=== PATIENT | male | born 1945 | race Caucasian/White ===

== ENCOUNTER 2021-01-11 11:00 | Outpatient (RCR) | payer MEDICARE, OTHER, SELFPAY ==
--- NOTE | 2020-12-13 11:24 | OTOPEVAL ---
OCCUPATIONAL THERAPY EVALUATION REPORT 12/13/20 Thank you for referring Kendall Orantes to [facility] The patient is scheduled to be seen for therapy? 1x/week for 4 weeks. Please review, sign, date and return this plan of care FELISA. I agree with and certify that the following plan of care is medically necessary. Referring Physician Date Referring Provider: Andrzej Prince MD *OT Outpatient Evaluation Outpatient Past Medical History Past Medical History Source of Past Medical History Patient Neurological History Hx Transient Ischemic Attacks (TIA) Yes: 2004 Cardiovascular History Hx Pacemaker Yes: March 2020 Hx Other Cardiac Disorders Yes: Aortic valve replacement Respiratory History Hx Chronic Obstructive Pulmonary Disease Yes (COPD) Hx Emphysema Yes Musculoskeletal History Hx Fractures Yes: Right elbow, right fingers HEENT History Hx Cataracts Yes: s/p surgery Hx Glaucoma Yes Evaluation Information Problem Diagnosis Bilateral hand pain Subjective Information Patient reports bilateral hand Query Text:As Reported By Patient/ pain that has been getting Family worse for about a year. Initially his pain was in the base of the thumb which he received a cortisone injection for and this helped his pain significantly. 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 He reports a decline in his ability to use his hands to turn on/off lamps, writing, typing, buttoning, etc. He states he is unable to take NSAID/anti-inflammatory for pain due to being on a blood thinner. Diagnostic Tests Other Tests For This Problem Yes: nerve condution study was negative Prior Level of Function Activity Level (Last 3 Months) Hand Dominance Left Comments Additional Prior Level of Function Patient is left-hand dominant, Comments but does use his right hand for a lot of ADL tasks. He states his is recovering from a broken ankle right now so he has been doing all of the cooking, cleaning, and laundry. Pain Assessment Timing of Pain Assessment Timing of Pain Assessment Assessment Pain Scal
--- NOTE | 2021-01-11 12:00 | OTOPEVAL ---
OCCUPATIONAL THERAPY RE-EVALUATION REPORT AND D/C SUMMARY Kendall has progressed well with therapy. He has improved functional use of his hands and notes less pain with use and at rest. He is currently independent with ROM, strengthening, and joint protection techniques. No further skilled OT is indicated at this time. Thank you for referring Kendall Orantes to [facility]Please review, sign, date and return this D/C Note FELISA. I agree with and certify that the following plan of care is medically necessary. Referring Physician Date Referring Provider: Dr. Andrzej Prince *OT Outpatient Re-Evaluation Evaluation Information Problem Diagnosis Bilateral hand pain Additional Evaluation Detail Kendall has participated in outpatient OT 1x/week for 4 weeks. OT has been focusing on use of paraffin, active ROM, vibration, and light resistive regional maintenance manager strengthening in conjunction with education on joint protection techniques and adaptive ADL equipment. He is currently independent with all materials. Subjective Information Today he presents for his re- Query Text:As Reported By Patient/ evaluation stating that his Family active ROM has improved and his pain has reduced. He states he hasn't had any sudden, shooting pains like he was having multiple times a day. He reports improved ability to write and turn on lamps as well as using adaptive equipment to open jars/containers with no pain. Pain Assessment Timing of Pain Assessment Timing of Pain Assessment Re-assessment Pain Scale Pain Scale Used Numeric (1 - 10) Self Report Pain Assessment Bilateral Hand(s) Reported Pain Level 1 Other Pain Description Stiff and achey Lowest Pain Intensity 0 Greatest Pain Intensity 5 Pain Score Pain Score 1: Self Report Interventions Used Interventions Used By Clinicians Paraffin Upper Extremity Range of Motion Finger Range of Motion Left Finger Range of Motion Comments -(L) hand full fist returned to normal limits -(L) hook fist continues to have 1.0 gap between finger tips and distal palmar crease, but is functional -Arthritic changes noted in IPs
== END 2021-01-12 07:34 | disposition home or self-care (01) ==
LOC: ANHOT 11:00
PROVIDERS: PCP Internal Medicine Endocrinology, Diabetes & Metabolism
DX: R20.0 Anesthesia of skin (principal); R20.2 Paresthesia of skin
CPT/HCPCS: 97018; 97110; 97140; 97165

== ENCOUNTER 2024-03-06 09:51 | Emergency (ER) | payer MEDICARE, OTHER, SELFPAY ==
[2024-03-06 10:05] VITALS: BP 131/63; PULSE 69; RESP 16; TEMP 37.2; O2SAT 99
--- NOTE | 2024-03-06 10:20 | ED.URI ---
HPI - URI/Sore Throat General Chief Complaint: Upper Respiratory Infection Stated Complaint: chills,sore throat,fatigue Time Seen by Provider: 03/06/24 10:20 Source: patient Mode of arrival: ambulatory Limitations: no limitations History of Present Illness HPI Narrative: 78-year-old male presents with complaint of sore throat for 5 days. He reports nasal congestion, mild headache, postnasal drainage for 3 days. Reports fatigue. No chest pain or shortness of breath. Reports mild dry cough. Afebrile. Denies nausea vomiting diarrhea. Not taking any xtvz-awr-wibqpmi medications to treat his symptoms. All systems reviewed and negative except as noted above. Related Data Home Medications Medication Instructions Recorded Confirmed enoxaparin 80 mg/0.8 mL 80 mg subcut 03/06/24 subcutaneous syringe evolocumab 140 mg/mL subcutaneous 140 mg subcut [id number] 03/06/24 03/06/24 pen injector (Areli Forbes) gabapentin 600 mg tablet 600 mg PO BID 03/06/24 03/06/24 ivermectin 1 % topical cream 1 applic topical HS 03/06/24 03/06/24 lisinopril 20 1 tablet PO DAILY 03/06/24 03/06/24 mg-hydrochlorothiazide 12.5 mg tablet metoprolol succinate 25 mg 25 mg PO DAILY 03/06/24 03/06/24 tablet,extended release 24 hr pantoprazole 40 mg tablet,delayed 40 mg PO DAILY 03/06/24 03/06/24 release rosuvastatin 10 mg tablet 10 mg PO HS 03/06/24 03/06/24 spironolactone 25 mg tablet 12.5 mg PO DAILY 03/06/24 03/06/24 tamsulosin 0.4 mg capsule 0.4 mg PO DAILY 03/06/24 03/06/24 timolol maleate (PF) 0.5 % eye 1 drp RIGHT EYE DAILY 03/06/24 03/06/24 drops in a dropperette warfarin 5 mg tablet 7.5 mg PO HS 03/06/24 03/06/24 Allergies Allergy/AdvReac Type Severity Reaction Status Date / Time Penicillins Allergy Unknown Unknown Verified 03/06/24 10:20 NKFA Allergy Unknown Unknown Uncoded 03/06/24 10:20 Review of Systems Review of Systems: CONSTITUTIONAL: Denies fever, chills, or sweats. reports fatigue. EYES: Denies visual changes, redness, or discharge. ENT: Reports rhinorrhea, congestion, sore throat. Denies otalgia. CARDIOVASCULAR: Denies chest pain, palpitations, or edema. RESPIRATORY: Reports cough. Denies dyspnea. GASTROINTESTINAL: Denies abdominal pain, nausea, vomiting, or diarrhea. GENITOURINARY: Denies dysuria or hematuria. SKIN: Denies rash or itching. MUSCULOSKELETAL: Denies back pain, joint pain, or myalgia. NEUROLOGIC: Denies headache, numbness, or weakness. PSYCHIATRIC: Denies anxiety or depression. All other systems reviewed are negative, except as documented in HPI. PMFSH Comments At time of signature, agree with nursing past medical, surgical, social and family history. There is no relevant family history pertinent to the presenting complaint. Exam Narrative: GENERAL: This is a well-nourished, well-developed patient, in no apparent distress. HEAD: normocephalic, atraumatic. EYES: PERRL. Sclera clear/white. Vision is grossly intact. EARS: External ears normal, auditory canals clear and without drainage, TMs normal without perforation. Hearing grossly intact. NOSE: External nose normal with mild congestion, erythema to bilateral nares with mild swelling. THROAT: Mucous membranes moist, Mild erythema with postnasal drainage. NECK: Neck supple, non-tender without lymphadenopathy, masses or thyromegaly. CARDIOVASCULAR: Regular rate and rhythm without murmurs, gallops, or rubs. RESPIRATORY: Clear to auscultation. Breath sounds equal bilaterally. No wheezes, rales, or rhonchi. SKIN: warm, Dry, intact with no suspicious lesions or rash, good texture and turgor. NEURO: awake, alert, and oriented to person, place and time. There were no obvious focal neurologic abnormalities. EXTREMITIES: No joint tenderness, effusion, or edema noted. Course Course Level of Care: Express Care Visit Vital Signs Vital signs: Vital Signs Temperature 37.2 C 03/06/24 10:05 Pulse Rate 69 03/06/24 10:0
== END 2024-03-06 10:38 | disposition home or self-care (01) ==
PROVIDERS: Emergency Provider Nurse Practitioner Family
DX: J06.9 Acute upper respiratory infection, unspecified (principal); Z20.822 Contact with and (suspected) exposure to COVID-19; E78.00 Pure hypercholesterolemia, unspecified; I10 Essential (primary) hypertension; Z95.0 Presence of cardiac pacemaker; Z95.2 Presence of prosthetic heart valve; J44.9 Chronic obstructive pulmonary disease, unspecified; K21.9 Gastro-esophageal reflux disease without esophagitis; H40.9 Unspecified glaucoma; Z86.73 Personal history of transient ischemic attack (TIA), and cerebral infarction without residual deficits
CPT/HCPCS: 87081; 87426; 87804; 87880; 99213; G0463

== ENCOUNTER 2024-12-11 16:24 | Emergency (ER) | payer MEDICARE, OTHER, SELFPAY ==
[2024-12-11 16:34] VITALS: BP 146/72; PULSE 77; RESP 16; TEMP 36.6; O2SAT 98
--- NOTE | 2024-12-11 16:48 | ED_ITS ---
HPI - Skin/Abscess/Foreign Bdy General Chief complaint: Skin/Abscess/Foreign Body Stated complaint: left leg wound Time Seen by Provider: 12/11/24 16:48 Source: patient, RN notes reviewed and old records reviewed Mode of arrival: ambulatory Limitations: no limitations History of Present Illness HPI narrative: Patient presents with complaint of wound to the left leg. He reports that he noticed the wound late last week, states that he has been applying Neosporin and Band-Aid daily. Has had some drainage from site. He now reports increasing tenderness and redness surrounding the area. He denies any fever, chills, sweats. He voices no other concerns or complaints at this time. He is unsure how he sustained the wound, he does report that it is where a pair of boots that he owns rubs him Related Data Home Medications ?Medication ?Instructions ?Recorded ?Confirmed ?Last Taken ?Type enoxaparin 80 mg/0.8 mL 80 mg subcut Q24H 03/06/24 12/11/24 Unknown History subcutaneous syringe evolocumab 140 mg/mL subcutaneous 140 mg subcut [id number] 03/06/24 12/11/24 Unknown History pen injector (Areli Forbes) gabapentin 600 mg tablet 600 mg PO BID 03/06/24 12/11/24 Unknown History ivermectin 1 % topical cream 1 applic topical HS 03/06/24 12/11/24 Unknown History lisinopril 20 1 tablet PO DAILY 03/06/24 12/11/24 Unknown History mg-hydrochlorothiazide 12.5 mg tablet metoprolol succinate 25 mg 25 mg PO DAILY 03/06/24 12/11/24 Unknown History tablet,extended release 24 hr pantoprazole 40 mg tablet,delayed 40 mg PO DAILY 03/06/24 12/11/24 Unknown History release rosuvastatin 10 mg tablet 10 mg PO HS 03/06/24 12/11/24 Unknown History spironolactone 25 mg tablet 12.5 mg PO DAILY 03/06/24 12/11/24 Unknown History tamsulosin 0.4 mg capsule 0.4 mg PO DAILY 03/06/24 12/11/24 Unknown History timolol maleate (PF) 0.5 % eye 1 drp RIGHT EYE DAILY 03/06/24 03/06/24 Unknown History drops in a dropperette warfarin 5 mg tablet 7.5 mg PO HS 03/06/24 12/11/24 Unknown History Allergies Allergy/AdvReac Type Severity Reaction Status Date / Time Penicillins Allergy Unknown Unknown Verified 12/11/24 16:41 Review of Systems 2 Review of Systems: All systems reviewed & are unremarkable except as noted in HPI and below Constitutional: Constitutional: Reports no additional constitutional complaints ENT: Reports system reviewed and no additional complaints, except as documented Cardiovascular: Cardiovascular: Reports no additional cardiovascular complaints Respiratory: Respiratory: Reports no additional respiratory complaints Gastrointestinal: Gastrointestinal: Reports no additional gastrointestinal complaints Integumentary/Breasts: Skin/Breast: Reports system reviewed and no additional complaints, except as docu and Reports as per HPI [facility] Comments At the time of my signature, I reviewed and agree with the nursing past medical, surgical, social, and family history. There is no relevant family history pertinent to the patient complaint. Exam 2 Const: General: cooperative, no acute distress, alert and awake O rientation/consciousness: oriented to person, oriented to place and oriented to time HENMT: Head: normal to inspection Resp: Effort & Inspection: normal respiratory effort and able to speak in complete sentences Auscultation: clear to auscultation bilaterally, no crackles, no rales, no rhonchi and no wheezes Cardio: Palpation: normal PMI Rate: regular rate Rhythm: regular rhythm Heart sounds: S1 normal heart sound present and S2 normal heart sound present Skin: Full body images: 1. 1.5 cm shallow wound, oval-shaped, surrounding erythema and warmth. No induration. No active dry Neuro: General: oriented to person, oriented to place and oriented to time Cranial nerves: Yes CN's II-XII intact bilaterally Psych: Appearance: grossly normal Thought process: Normal thought process present Insight: Good insight present (Psych) Judgement: Good judgement present (Psych) Course Course Level of Care: Express Care Visit Vital Signs Vital signs: Vital Signs Temperature 97.9 F 12/11/24 16:34 Pulse Rate 77 12/11/24 16:34 Respiratory Rate 16 12/11/24 16:34 Blood Pressure 146/72 H 12/11/24 16:34 Pulse Oximetry 98 12/11/24 16:34 Oxygen Delivery Room Air 12/11/24 16:34 Temperature 97.9 F 12/11/24 16:34 Pulse Rate 77 12/11/24 16:34 Respiratory Rate 16 12/11/24 16:34 Blood Pressure 146/72 H 12/11/24 16:34 Pulse Oximetry 98 12/11/24 16:34 Oxygen Delivery Room Air 12/11/24 16:34 Reviewed MDM - Skin/Abscess/Foreign Bdy MDM Narrative Medical decision making narrative: History and exam consistent with cellulitis. Patient nontoxic appearing, stable for discharge home with p.o. antibiotic therapy. Discharge instructions reviewed with patient, as well as provided in writing per nursing staff. The instructions also include specific and strict return/GO TO THE ER as well as f/u information. All questions have been answered, and the patient deny any further questions with discharge and discharge plan. Some parts of this dictation were generated by voice recognition software and may contain typographical and/or grammatical inaccuracies. Differential Diagnosis Differential diagnosis: Likely abscess of skin or subcutaneous tissue, cellulitis and contact dermatitis Medical Records Attestation: I reviewed the patient's medical records. Discharge Plan Discharge Clinical Impression: Cellulitis Qualifiers: Site of cellulitis: extremity Site of cellulitis of extremity: lower extremity Laterality: left Qualified Code(s): L03.116 - Cellulitis of left lower limb Patient Disposition: Home, Self-Care Condition: Stable Instructions: Antibiotic Form, Cellulitis (ED) Additional Instructions: Take medications as prescribed. Follow-up with primary care provider. Emergency department for new or worse symptoms Patient Language: Dominican Prescriptions: New doxycycline hyclate 100 mg tablet 100 mg PO BID Qty: 14 0RF No Action gabapentin 600 mg tablet 600 mg PO BID lisinopril-hydrochlorothiazide 20-12.5 mg tablet 1 tablet PO DAILY spironolactone 25 mg tablet 12.5 mg PO DAILY tamsulosin 0.4 mg capsule 0.4 mg PO DAILY pantoprazole 40 mg tablet,delayed release (DR/EC) 40 mg PO DAILY warfarin 5 mg tablet 7.5 mg PO HS metoprolol succinate 25 mg tablet extended release 24 hr 25 mg PO DAILY enoxaparin 80 mg/0.8 mL syringe 80 mg subcut Q24H timolol maleate (PF) 0.5 % dropperette 1 drp RIGHT EYE DAILY rosuvastatin 10 mg tablet 10 mg PO HS ivermectin 1 % cream 1 applic TOPICAL HS Repatha SureClick 140 mg/mL pen injector 140 mg SUBCUT [id number] Follow-up/Referrals: German,Marlo Ledezma MD [Primary Care Provider] - Time of Disposition: 16:56
== END 2024-12-11 17:00 | disposition home or self-care (01) ==
PROVIDERS: Emergency Provider Nurse Practitioner Family; PCP Internal Medicine Endocrinology, Diabetes & Metabolism
DX: L03.116 Cellulitis of left lower limb (principal); Z79.899 Other long term (current) drug therapy; Z79.01 Long term (current) use of anticoagulants
CPT/HCPCS: 99213; G0463

== ENCOUNTER 2025-02-13 19:11 | Emergency (ER) | payer MEDICARE, OTHER, SELFPAY ==
--- NOTE | ~2025-02-13 | XR_ITS ---
EXAMINATION: XR chest 2V Exam Date/Time: 02/13/2025 19:35 CDT HISTORY: cough and SOB Comparison: 07/17/2006; CT abdomen pelvis 10/30/2018. RESULT: Lines, tubes, and devices: Left chest pacer with intact leads. Cardiac valve replacement. Intact maria a rnotomy wires. Lungs and pleura: Clear. Cardiomediastinal silhouette: Normal heart size. Mild arch calcification. Calcified pericardial node . Other: No acute osseous or upper abdominal finding. Multilevel mild anterior wedge deformities in th e upper thoracic spine. IMPRESSION: No acute cardiopulmonary process. 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 Reviewed, dictated and finalized at location K. IMPRESSION: No acute cardiopulmonary process. Exaggerated thoracic kyphosis, with presumed chronic multilevel mild wedge comp ression deformities in the upper thoracic spine.
[2025-02-13 19:21] VITALS: BP 143/63; PULSE 81; RESP 19; TEMP 37; O2SAT 97
--- NOTE | 2025-02-13 19:32 | ED_ITS ---
HPI - URI/Sore Throat General Chief Complaint: Upper Respiratory Infection Stated Complaint: Cough/Congestion Time Seen by Provider: 02/13/25 19:32 Source: patient Mode of arrival: ambulatory Limitations: no limitations History of Present Illness HPI Narrative: 79 yo M presents with c/o low grade fever, cough, nasal congestion, fatigue, bodyaches for 1 days. Reports SOB with exertion when up and about. No SOB at rest. Difficulty sleeping last night due to cough. Took delsym with little relief. Pt alert and oriented. all systems reviewed and negative except as noted above. Related Data Home Medications ?Medication ?Instructions ?Recorded ?Confirmed ?Last Taken ?Type evolocumab 140 mg/mL subcutaneous 140 mg subcut [id number] 03/06/24 12/11/24 Unknown History pen injector (Areli Forbes) gabapentin 600 mg tablet 600 mg PO BID 03/06/24 12/11/24 Unknown History ivermectin 1 % topical cream 1 applic topical HS 03/06/24 12/11/24 Unknown History lisinopril 20 1 tablet PO DAILY 03/06/24 12/11/24 Unknown History mg-hydrochlorothiazide 12.5 mg tablet metoprolol succinate 25 mg 25 mg PO DAILY 03/06/24 12/11/24 Unknown History tablet,extended release 24 hr pantoprazole 40 mg tablet,delayed 40 mg PO DAILY 03/06/24 12/11/24 Unknown History release rosuvastatin 10 mg tablet 10 mg PO HS 03/06/24 12/11/24 Unknown History spironolactone 25 mg tablet 12.5 mg PO DAILY 03/06/24 12/11/24 Unknown History tamsulosin 0.4 mg capsule 0.4 mg PO DAILY 03/06/24 12/11/24 Unknown History timolol maleate (PF) 0.5 % eye 1 drp RIGHT EYE DAILY 03/06/24 03/06/24 Unknown History drops in a dropperette warfarin 5 mg tablet 7.5 mg PO HS 03/06/24 12/11/24 Unknown History Bifidobacterium longum 10 million cell PO 02/13/25 Unknown History cell capsule (Align (B.longum)) coenzyme [id number] E 100 mg-100 cap PO 02/13/25 Unknown History unit capsule glucosamine [id number] 1 tablet PO DAILY 02/13/25 Unknown History tiffanie 1,500 mg-400 unit-100 mg tablet (Osteo Bi-Flex (5-Loxin)) hydrocortisone 1 % topical cream 1 applic topical DAILY 02/13/25 02/13/25 Hist ory (Cortisone (hydrocortisone)) gfrlzxxlvqrx-dohhcvh-qkevm acid 1 tablet PO DAILY 02/13/25 Unknown History 400 mcg-lutein 250 mcg chewable tablet (Centrum Silver) testosterone 02/13/25 Unknown History triamcinolone acetonide 0.1 % applic topical 02/13/25 Unknown History topical cream Allergies Allergy/AdvReac Type Severity Reaction Status Date / Time bacitracin Allergy Mild Unknown Verified 02/13/25 19:39 Penicillins Allergy Unknown Unknown Verified 02/13/25 19:39 Review of Systems 2 Review of Systems: CONSTITUTIONAL: reports fatigue, fever, EYES: Denies visual changes, redness, or discharge. ENT: Reports rhinorrhea, congestion. Denies sore throat, or otalgia. CARDIOVASCULAR: Denies chest pain, palpitations, or edema. RESPIRATORY: reports cough and dyspnea with exertion. GASTROINTESTINAL: Denies abdominal pain, nausea, vomiting, or diarrhea. GENITOURINARY: Denies dysuria or hematuria. SKIN: Denies rash or itching. MUSCULOSKELETAL: Denies back pain, joint pain, or myalgia. NEUROLOGIC: Denies headache, numbness, or weakness. PSYCHIATRIC: Denies anxiety or depression. All other systems reviewed are negative, except as documented in HPI. PMFSH Comments At time of signature, agree with nursing past medical, surgical, social and family history. There is no relevant family history pertinent to the presenting complaint. Exam Narrative: GENERAL: This is a well-nourished, well-developed patient, in no apparent distress. HEAD: normocephalic, atraumatic. EYES: PERRL. Sclera clear/white. Vision is grossly intact. EARS: External ears normal, auditory canals clear and without drainage, TMs normal without perforation. Hearing grossly intact. NOSE: External nose normal with Clear nasal drainage THROAT: Mucous membranes moist, posterior pharynx clear. NECK: Neck supple, non-tender without lymphadenopathy, masses or thyromegaly. CARDIOVASCULAR: Regular rate and rhythm without murmurs, gallops, or rubs. RESPIRATORY: mildly coarse bilateral lower lung kinney otherwise clear. Breath sounds equal bilaterally. No wheezes, rales, or rhonchi. SKIN: warm, Dry, intact with no suspicious lesions or rash, good texture and turgor. NEURO: awake, alert, and oriented to person, place and time. There were no obvious focal neurologic abnormalities. EXTREMITIES: No joint tenderness, effusion, or edema noted. Course Course Level of Care: Express Care Visit Vital Signs Vital signs: Vital Signs Temperature 37.0 C 02/13/25 19:21 Pulse Rate 81 02/13/25 19:21 Respiratory Rate 19 02/13/25 19:21 Blood Pressure 143/63 H 02/13/25 19:21 Pulse Oximetry 97 02/13/25 19:21 Oxygen Delivery Room Air 02/13/25 19:21 Temperature 37.0 C 02/13/25 19:21 Pulse Rate 81 02/13/25 19:21 Respiratory Rate 19 02/13/25 19:21 Blood Pressure 143/63 H 02/13/25 19:21 Pulse Oximetry 97 02/13/25 19:21 Oxygen Delivery Room Air 02/13/25 19:21 reviewed MDM - URI/Sore Throat MDM Narrative Medical decision making narrative: negative COVID and influenza test. Chest x-ray negative for pneumonia. Oxygen saturation 97% room air. No respiratory distress. Patient is alert, nontoxic. Recommend kysb-fon-wbkctnn medications to treat viral symptoms. Will go to the ER for any worsening of symptoms. Please be advised this is a medical document. It is intended for nqfy-lz-slvy communication. It is written in medical language and may contain unfamiliar abbreviations or verbiage. Medical documents are intended to carry relevant information, facts as evident, and the clinical opinion of the practitioner at the time of the encounter. This report may have been done utilizing a voice recognition system. Attempts have been made to correct errors. However, there may be uncorrected grammatical, spelling, and recognition errors present. The file time of this note does not necessarily represent the time of service. Differential Diagnosis Differential diagnosis: Likely upper respiratory infection, sinusitis, viral infection and influenza Lab Data Labs: Lab Results 02/13/25 Range/Units 19:55 POC Influenza A Ag Negative (Negative) POC Influenza B Ag Negative (Negative) POC SARS CoV-2 Ag Negative (Negative) Imaging Data My impression: agree with radiologist Radiologist's impression: EXAMINATION: XR chest 2V Exam Date/Time: 02/13/2025 19:35 CDT HISTORY: cough and SOB Comparison: 07/17/2006; CT abdomen pelvis 10/30/2018. RESULT: Lines, tubes, and devices: Left chest pacer with intact leads. Cardiac valve replacement. Intact sternotomy wires. Lungs and pleura: Clear. Cardiomediastinal silhouette: Normal heart size. Mild arch calcification. Calcified pericardial node. Other: No acute osseous or upper abdominal finding. Multilevel mild anterior wedge deformities in the upper thoracic spine. IMPRESSION: No acute cardiopulmonary process. 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 Discharge Plan Discharge Clinical Impression: Viral upper respiratory tract infection with cough Patient Disposition: Home, Self-Care Condition: Stable Instructions: Upper Respiratory Infection (ED) Additional Instructions: Your COVID and influenza test was negative today. Your chest x-ray did not show pneumonia. Your symptoms are viral and may last 10-14 days. Take medications as prescribed. Take Tylenol every 6-8 hours as needed for pain and fever. Drink plenty of water and rest. See your doctor if symptoms are not improving. Patient Language: Hungarian Prescriptions: New benzonatate 200 mg capsule 200 mg PO TID PRN (Reason: cough) Qty: 20 0RF methylprednisolone [Medrol (Ashutosh)] 4 mg tablets,dose pack See Rx Instructions PO .COMPLEX Qty: 21 0RF Rx Instructions: orally per package directions fluticasone propionate [Flonase Allergy Relief] 50 mcg/actuation spray,suspension 1 spray intranasal BID Qty: 16 0RF Rx Instructions: administer into each nostril No Action doxycycline hyclate 100 mg tablet 100 mg PO BID Qty: 14 0RF triamcinolone acetonide 0.1 % cream TOPICAL testosterone 20.25 mg/1.25 gram (1.62 %) gel in metered-dose pump hydrocortisone [Cortisone (hydrocortisone)] 1 % cream 1 applic topical DAILY Align (B.longum) 10 million cell capsule PO Centrum Silver 400-250 mcg tablet,chewable 1 tablet PO DAILY coenzyme [id number] E 100-100 mg-unit capsule PO [id number] serr [Osteo Bi-Flex (5-Loxin)] 1,500-400-100 mg -unit-mg tablet 1 tablet PO DAILY Rx Instructions: give after food/meal gabapentin 600 mg tablet 600 mg PO BID lisinopril-hydrochlorothiazide 20-12.5 mg tablet 1 tablet PO DAILY spironolactone 25 mg tablet 12.5 mg PO DAILY tamsulosin 0.4 mg capsule 0.4 mg PO DAILY pantoprazole 40 mg tablet,delayed release (DR/EC) 40 mg PO DAILY warfarin 5 mg tablet 7.5 mg PO HS metoprolol succinate 25 mg tablet extended release 24 hr 25 mg PO DAILY timolol maleate (PF) 0.5 % dropperette 1 drp RIGHT EYE DAILY rosuvastatin 10 mg tablet 10 mg PO HS ivermectin 1 % cream 1 applic TOPICAL HS Repatha SureClick 140 mg/mL pen injector 140 mg SUBCUT [id number] Follow-up/Referrals: German,Marlo Ledezma MD [Primary Care Provider] - Time of Disposition: 20:06
[2025-02-13 19:56] LABS: EDCOVIDSCREEN Negative (Negative); EDINFLUASCREEN Negative (Negative); EDINFLUBSCREEN Negative (Negative)
== END 2025-02-13 20:09 | disposition home or self-care (01) ==
PROVIDERS: Emergency Provider Nurse Practitioner Family; PCP Internal Medicine Endocrinology, Diabetes & Metabolism
DX: J06.9 Acute upper respiratory infection, unspecified (principal); R05.9 Cough, unspecified; Z20.822 Contact with and (suspected) exposure to COVID-19; I10 Essential (primary) hypertension; E78.00 Pure hypercholesterolemia, unspecified; J44.9 Chronic obstructive pulmonary disease, unspecified; K21.9 Gastro-esophageal reflux disease without esophagitis; Z95.2 Presence of prosthetic heart valve; Z86.73 Personal history of transient ischemic attack (TIA), and cerebral infarction without residual deficits; Z95.0 Presence of cardiac pacemaker; Z79.01 Long term (current) use of anticoagulants
CPT/HCPCS: 71046; 87426; 87804; 99203; G0463

== ENCOUNTER 2025-11-22 14:06 | Emergency (ER) | payer MEDICARE, OTHER, SELFPAY ==
--- NOTE | ~2025-11-22 | XR_ITS ---
XR chest 2V 11/22/2025 14:31 Indication: Cough for 9 days Procedure: 2 view chest Comparison: 02/13/2025 Findings: Status post median sternotomy for CABG. Heart size normal. No focal air space disease, pulmonary edema, pleural effusion or suspected pneumothorax. There is diffuse idiopathic skeletal hyperostosis (DISH) of the thoracic spine. Impression: 1: No acute cardiopulmonary disease. Reviewed, dictated and finalized at location O. IER DRIVER Impression: 1: No acute cardiopulmonary disease.
[2025-11-22 14:14] VITALS: BP 132/74; PULSE 99; RESP 16; TEMP 36.4; O2SAT 95
--- NOTE | 2025-11-22 14:16 | ED.URI ---
HPI - URI/Sore Throat General Chief Complaint: Upper Respiratory Infection Stated Complaint: flu symptoms Time Seen by Provider: 11/22/25 14:16 Source: patient, RN notes reviewed and old records reviewed Mode of arrival: ambulatory Limitations: no limitations History of Present Illness HPI Narrative: 80-year-old male presents to the [facility] with 2 weeks of cough, sore throat, body aches, muscle aches and pains. Patient states that symptoms started on SaturdayNovember 13. Had called his primary on the was prescribed antibiotics which did nothing for him. Was also prescribed codeine cough medicine. Patient denies any chest pain, shortness of breath, abdominal pain or swelling. Denies taking any other medication to help with symptoms Onset (ago): day(s) (9) Treatments prior to arrival: antibiotics Related Data Home Medications ?Medication ?Instructions ?Recorded ?Confirmed ?Last Taken ?Type evolocumab 140 mg/mL subcutaneous 140 mg subcut [id number] 03/06/24 12/11/24 Unknown History pen injector (Areli Forbes) gabapentin 600 mg tablet 600 mg PO BID 03/06/24 12/11/24 Unknown History ivermectin 1 % topical cream 1 applic topical HS 03/06/24 12/11/24 Unknown History lisinopril 20 1 tablet PO DAILY 03/06/24 12/11/24 Unknown History mg-hydrochlorothiazide 12.5 mg tablet metoprolol succinate 25 mg 25 mg PO DAILY 03/06/24 12/11/24 Unknown History tablet,extended release 24 hr pantoprazole 40 mg tablet,delayed 40 mg PO DAILY 03/06/24 12/11/24 Unknown History release spironolactone 25 mg tablet 12.5 mg PO DAILY 03/06/24 12/11/24 Unknown History tamsulosin 0.4 mg capsule 0.4 mg PO DAILY 03/06/24 12/11/24 Unknown History timolol maleate (PF) 0.5 % eye 1 drp RIGHT EYE DAILY 03/06/24 03/06/24 Unknown History drops in a dropperette warfarin 5 mg tablet 7.5 mg PO HS 03/06/24 12/11/24 Unknown History Bifidobacterium longum 10 million cell PO 02/13/25 Unknown History cell capsule (Align (B.longum)) coenzyme [id number] E 100 mg-100 cap PO 02/13/25 Unknown History unit capsule glucosamine [id number]-[id number] 1 tablet PO DAILY 02/13/25 Unknown History tiffanie 1,500 mg-400 unit-100 mg tablet (Osteo Bi-Flex (5-Loxin)) hydrocortisone 1 % topical cream 1 applic topical DAILY 02/13/25 02/13/25 History (Cortisone (hydrocortisone)) [id number]-rydykal-yvpfx acid 1 tablet PO DAILY 02/13/25 Unknown History 400 mcg-lutein 250 mcg chewable tablet (Centrum Silver) testosterone 02/13/25 Unknown History triamcinolone acetonide 0.1 % applic topical 02/13/25 Unknown History topical cream mometasone 0.1 % topical cream applic topical 11/22/25 Unknown History rosuvastatin 5 mg tablet mg 11/22/25 Unknown History Allergies Allergy/AdvReac Type Severity Reaction Status Date / Time bacitracin Allergy Mild Unknown Verified 11/22/25 14:29 neomycin (From Neosporin Allergy Unknown Unknown Verified 11/22/25 14:29 ([id number])) Penicillins Allergy Unknown Unknown Verified 11/22/25 14:29 polymyxin B (From Neosporin Allergy Unknown Unknown Verified 11/22/25 14:29 ([id number])) Review of Systems Review of Systems: All systems reviewed & are unremarkable except as noted in HPI and below Constitutional: Constitutional: Reports as per HPI and Reports body ache(s) ENT: Reports as per HPI Cardiovascular: Cardiovascular: Reports no additional cardiovascular complaints, Denies chest pain and Denies dyspnea Respiratory: Respiratory: Reports as per HPI, Reports chest congestion, Reports cough and Denies dyspnea Musculoskeletal: Musculoskeletal: Reports no additional musculoskeletal complaints Integumentary/Breasts: Skin/Breast: Reports system reviewed and no additional complaints, except as docu PMFSH Comments At the time of my signature, I reviewed and agree with the nursing past medical, surgical, social, and family history. There is no relevant family history pertinent to the patient complaint. Exam Const: General: cooperative, comfortable, no acute distress, well developed, alert, ill appearing chronically; not acutely and well nourished Nutritional Appearance: well nourished Orientation/consciousness: patient oriented x3 Limitations: no limitations HENMT: Head: normal to inspection Ears: hearing grossly normal bilaterally, external ears normal, TM's normal bilaterally, EAC's normal, mastoids normal and no periauricular adenopathy Face and sinus: normal facial exam, sinuses nontender and face symmetric Mouth: Yes Normal oral and palatal mucosa present, Yes lip normal, Yes tongue normal and Yes moist mucous membranes Throat: posterior oropharynx normal, uvula midline and no uvular edema Eyes: General: appearance normal, both eyes and all related structures Alignment and Position: alignment normal Neck: Neck: normal visual inspection, full ROM, no lymphadenopathy and no meningeal signs Chest: Chest palpation & inspection: normal inspection of the chest Resp: Effort & Inspection: normal respiratory effort and able to speak in complete sentences Auscultation: clear to auscultation bilaterally, no crackles, no rales, no rhonchi and no wheezes Cardio: Rate: regular rate Skin: General skin exam: normal color and no rashes or lesions noted Neuro: General: patient oriented x3, gait normal, moves all extremities and no meningeal signs Cognition (Neuro): normal cognition Speech: normal speech Gait exam (Neuro): Normal gait present Extrem: General: normal to inspection, full ROM, capillary refill normal and normal gait Psych: Appearance: grossly normal and well kempt Mental Status: mental status grossly normal Speech and movement: Normal speech and movement present and Clear speech present Affect: normal affect Attitude: cooperative Course Course Level of Care: Express Care Visit Vital Signs Vital signs: Vital Signs Temperature 97.6 F 11/22/25 14:14 Pulse Rate 99 11/22/25 14:14 Respiratory Rate 16 11/22/25 14:14 Blood Pressure 132/74 11/22/25 14:14 Pulse Oximetry 95 11/22/25 14:14 Oxygen Delivery Room Air 11/22/25 14:14 Temperature 97.6 F 11/22/25 14:14 Pulse Rate 99 11/22/25 14:14 Respiratory Rate 16 11/22/25 14:14 Blood Pressure 132/74 11/22/25 14:14 Pulse Oximetry 95 11/22/25 14:14 Oxygen Delivery Room Air 11/22/25 14:14 reviewed MDM MDM Narrative Medical decision making narrative: patient sitting in exam room. Patient is nontoxic, vitals stable. Patient presents with URI symptoms for 2 weeks has tried a Z-Ashutosh and codeine, no it change in symptoms. Chest x-ray with no acute findings patient is COVID positive patient appropriate for outpatient treatment with close follow-up Discharge instructions reviewed with patient, as well as provided in writing per nursing staff. The instructions also include specific and strict return/GO TO THE ER as well as f/u information. All questions have been answered, and the patient deny any further questions with discharge and discharge plan. Some parts of this dictation were generated by voice recognition software and may contain typographical and/or grammatical inaccuracies. Differential Diagnosis Differential Diagnosis: Differential diagnostic considerations for upper respiratory infection include upper respiratory infection, croup, otitis media, sinusitis, viral infection, bronchitis, influenza, pharyngitis, strep, uvulitis.? Lab Data Labs: Lab Results 11/22/25 Range/Units 14:23 POC Influenza A Ag Negative (Negative) POC Influenza B Ag Negative (Negative) POC SARS CoV-2 Ag Positive (Negative) POC Grp A Strep Screen Negative (Negative) reviewed Imaging Data Radiologist's impression: ITS Impressions Chest X-Ray 11/22/25 14:33 Impression: 1: No acute cardiopulmonary disease. XR chest 2V 11/22/2025 14:31 Indication: Cough for 9 days Procedure: 2 view chest Comparison: 02/13/2025 Findings: Status post median sternotomy for CABG. Heart size normal. No focal air space disease, pulmonary edema, pleural effusion or suspected pneumothorax. There is diffuse idiopathic skeletal hyperostosis (DISH) of the thoracic spine. Impression: 1: No acute cardiopulmonary disease. Discharge Plan Discharge Clinical Impression: COVID-19 Patient Disposition: Home Condition: Stable Instructions: COVID-19 (Coronavirus Disease 2019) (ED) Additional Instructions: Your rapid strep swab was negative today at [facility]. Your rapid COVID test was positive Your rapid flu test was negative your x-ray did not show signs of pneumonia Your symptoms are due to a viral illness, which is not treated with antibiotics. Typically viral infections last 7-10 days, can linger for couple of weeks. It is very important to treat your symptoms. Drink plenty of water, Gatorade, Pedialyte, ice pops or Jell-O. -Alternate Tylenol and Motrin per package directions for fever or pain. You can alternate every 4 hours -Antihistamine medication such as Zyrtec/Claritin during the day can help improve symptoms. -doing daily nasal irrigations can help relieve pressure your sinuses. Things like a Neti pot -Use Flonase daily to help reduce the inflammation and dry up your sinuses. -You can also use Coricidin HBP. Be sure to drink plenty of water with this medication at least 8 ounces with every dose and it is important to drink 8 to 10 glasses of water per day. Water is a natural decongestant -Eat and drink things that are easy to swallow, like tea or soup, or popsicles. -Oral rinses such as: Salt water gargles and/or may use topical anesthetic (eg. Chloraseptic spray) or lozenges to relieve dryness or throat pain). -Frequent hand washing or hand laboratory technical specialist is one of the best ways to prevent spread of infection. -Using a vaporizer or humidifier at night will also help thin secretions and help with coughing up phlegm. -Follow up with primary care provider in 7-10 days if condition is not improving - For new or worsening symptoms go directly to the nearest ER Patient Language: Colombian Prescriptions: No Action triamcinolone acetonide 0.1 % cream TOPICAL testosterone 20.25 mg/1.25 gram (1.62 %) gel in metered-dose pump hydrocortisone [Cortisone (hydrocortisone)] 1 % cream 1 applic topical DAILY Align (B.longum) 10 million cell capsule PO Centrum Silver 400-250 mcg tablet,chewable 1 tablet PO DAILY coenzyme [id number] E 100-100 mg-unit capsule PO [id number]-Nzhrssoaw serr [Osteo Bi-Flex (5-Loxin)] 1,500-400-100 mg-unit-mg tablet 1 tablet PO DAILY Rx Instructions: give after food/meal fluticasone propionate [Flonase Allergy Relief] 50 mcg/actuation spray,suspension 1 spray intranasal BID Qty: 16 0RF Rx Instructions: administer into each nostril rosuvastatin 5 mg tablet mometasone 0.1 % cream TOPICAL gabapentin 600 mg tablet 600 mg PO BID lisinopril-hydrochlorothiazide 20-12.5 mg tablet 1 tablet PO DAILY spironolactone 25 mg tablet 12.5 mg PO DAILY tamsulosin 0.4 mg capsule 0.4 mg PO DAILY pantoprazole 40 mg tablet,delayed release (DR/EC) 40 mg PO DAILY warfarin 5 mg tablet 7.5 mg PO HS metoprolol succinate 25 mg tablet extended release 24 hr 25 mg PO DAILY timolol maleate (PF) 0.5 % dropperette 1 drp RIGHT EYE DAILY ivermectin 1 % cream 1 applic TOPICAL HS Repatha SureClick 140 mg/mL pen injector 140 mg SUBCUT [id number] Follow-up/Referrals: German,Marlo Ledezma MD [Primary Care Provider, Unknown] - 2 Weeks Clinical Impression: COVID-19 Time of Disposition: 14:38
[2025-11-22 14:40] LABS: EDSTREPNEGPOS1 Negative (Negative)
[2025-11-22 14:43] LABS: EDCOVIDSCREEN Positive (Negative); EDINFLUASCREEN Negative (Negative); EDINFLUBSCREEN Negative (Negative)
== END 2025-11-22 14:44 | disposition home or self-care (01) ==
PROVIDERS: Emergency Provider Nurse Practitioner; PCP Internal Medicine Endocrinology, Diabetes & Metabolism
DX: U07.1 COVID-19 (principal); I10 Essential (primary) hypertension; E78.00 Pure hypercholesterolemia, unspecified; Z95.2 Presence of prosthetic heart valve; J44.9 Chronic obstructive pulmonary disease, unspecified; K21.9 Gastro-esophageal reflux disease without esophagitis; H40.9 Unspecified glaucoma; Z95.0 Presence of cardiac pacemaker; Z86.73 Personal history of transient ischemic attack (TIA), and cerebral infarction without residual deficits
CPT/HCPCS: 71046; 87426; 87804; 87880; 99213; G0463